=== PATIENT | male | born 1980 | race Caucasian/White ===

== ENCOUNTER 2018-06-09 19:16 | Emergency (ER) | payer MEDICAID ==
--- NOTE | 2018-06-09 19:24 | EDPHY ---
H & P Source: Patient Exam Limitations: No limitations - Family History Significant Family History: No pertinent family hx - Social History Smoking Status: Never smoked Time Seen by Provider: 06/09/18 19:23 HPI/ROS: CHIEF COMPLAINT: Left hand laceration HISTORY OF PRESENT ILLNESS: The patient is brought in by paramedics limited trauma activation with a laceration to the left hand. The patient was working with a band saw at home when he sustained a laceration to the palmar aspect of the left hand. The patient has inability to move his left index finger and reports associated numbness in his left index finger. The patient is uncertain if his tetanus is up-to-date. He denies additional complaints of trauma. REVIEW OF SYSTEMS: A comprehensive 10 point review of systems is otherwise negative aside from elements mentioned in the history of present illness. (Solo Shah) - Medical/Surgical History PMH: Past medical history: Noncontributory (Solo Shah) - Physical Exam Exam: General Appearance: Alert, no distress Head: Atraumatic Neck: Nontender, trachea midline Abdomen: Abdomen is soft and nontender, pelvis stable Skin: 5 cm laceration noted over the palm of the left hand at the interface of zone 2/3. Back: No midline T/L/S pain Extremities: Left palmar laceration noted with complete tendon lacerations noted of the flexor tendons involving the left index finger Neuro: Loss of sensation noted along the radial and ulnar aspect of the left index finger. (Solo Shah) Constitutional: Initial Vital Signs Temperature (C) 36.6 C 06/09/18 19:30 Heart Rate 108 H 06/09/18 19:30 Respiratory Rate 18 06/09/18 19:30 Blood Pressure 151/92 H 06/09/18 19:30 O2 Sat (%) 95 06/09/18 19:30 O2 Delivery Mode Room Air Allergies/Adverse Reactions: No Known Allergies Allergy (Unverified 06/09/18 19:33) Home Medications: Medication Instructions Recorded Cephalexin [Keflex (*)] 500 mg PO TID #21 cap 06/09/18 Hydrocodone/APAP 5/325 [Willington 1 - 2 each PO Q6 PRN #20 tab 06/09/18 5/325] Medical Decision Making Procedures: Procedure: Laceration repair. I was requested by Dr. Shah to perform wound closure I explained the indications, risks and benefits for both laceration repair and anesthetic administration. Verbal consent was obtained from the patient. The laceration on the left hand was anesthetized using 0.5% bupivicaine without epinephrine. After anesthetic administered the patient was observed for a period of time and had no apparent adverse effects. The wound was cleaned, prepped, draped in normal sterile fashion and explored to its base. No foreign body seen, no foreign bodies palpated. There were deep structures involved. Tendon injury was identified. Skin margins reapproximated with with 6 simple interrupted 5 O Prolene sutures. The wound repair was complex. The procedure was performed by myself. Patient has been informed that scarring will occur, although efforts have been made to minimize this. (Marek Trejo) ED Course/Re-evaluation: The patient presents to the ED with a zone II/III palmar laceration palmar laceration involving the left hand. The patient the has lacerations of the left index finger flexor tendons and also has a sensory nerve laceration involving the same digit. Consultation was made with Dr. Lr from Hand surgery and injuries were reviewed. Dr. Lr has requested closure in the emergency department and splinting. He will see the patient in the office tomorrow to discuss surgical repair of his flexor tendon and nerve injuries. The patient will be placed in a volar wrist splint. The patient is started on Keflex. Patient is given a prescription for Willington. The patient's laceration was repaired by the physician financial administrative assistant Jerry Trejo under my supervision. (Solo Shah) Differential Diagnosis: Differential diagnosis considered includes tendon injury (Solo Shah) - Data Points Medications Given: Discontinued Medications Cephalexin HCl (Keflex) 500 mg PO EDNOW ONE PRN Reason: Protocol Stop: 06/09/18 19:49 Last Admin: 06/09/18 20:11 Dose: 500 mg Diphtheria/Tetanus/Acell Pertussis (Boostrix) 0.5 ml IM .ONCE ONE Stop: 06/09/18 19:49 Last Admin: 06/09/18 20:12 Dose: 0.5 ml Departure - Departure Disposition: Home, Routine, Self-Care Clinical Impression: Laceration of left hand involving tendon Qualifiers: Encounter type: initial encounter Qualified Code(s): S61.412A - Laceration without foreign body of left hand, initial encounter Laceration of digital nerve of hand Qualifiers: Encounter type: initial encounter Qualified Code(s): S64.40XA - Injury of digital nerve of unspecified finger, initial encounter Condition: Good Instructions: Laceration (ED) Additional Instructions: 1. Take antibiotics as directed for next week. 2. Willington as needed for pain. 3. Please contact Dr. Lr tomorrow to schedule a follow-up visit for your hand injury. You will require for surgery to repair your nerve and tendon. 4. Please return to the ED for markedly increasing pain, redness, fever or swelling. 5. Please leave the splint on your left hand until seen in follow-up by Dr. Lr tomorrow or the next day. Referrals: Akash Lr MD [Medical Doctor] - As per Instructions Prescriptions: Cephalexin [Keflex (*)] 500 mg PO TID #21 cap Hydrocodone/APAP 5/325 [Willington 5/325] 1 - 2 each PO Q6 PRN #20 tab PRN Reason: for pain
[2018-06-09] MEDS ORDERED: CEPHALEXIN 500 MG CAP PO ONE (19:48)
[2018-06-09] MEDS ORDERED: TDAP ADULT 0.5 ML INJ (BOOSTRIX) IM ONE (19:48)
[2018-06-09] MEDS ORDERED: HYDROCOD/APAP 5/325 PREPACK#6 BTL TAKEHOME ONE ×2 (21:17→21:25)
[2018-06-09 21:38] VITALS: BP 106/79
== END 2018-06-09 21:38 | disposition home or self-care (01) ==
LOC: EDUNIT#
PROC: 0HQGXZZ Repair Left Hand Skin, External Approach (ICD-10-PCS; principal; 2018-06-09)
DX: S61.412A Laceration without foreign body of left hand, initial encounter (principal); S64.40XA Injury of digital nerve of unspecified finger, initial encounter; W31.2XXA Contact with powered woodworking and forming machines, initial encounter; Y92.008 Other place in unspecified non-institutional (private) residence as the place of occurrence of the external cause; Z23 Encounter for immunization

== ENCOUNTER 2018-06-19 12:01 | Day surgery (SDC) | payer MEDICAID ==
[2018-06-19] MEDS ORDERED: ceFAZolin 2 GM/DEXTROSE 100 ML IV ONE (12:21)
[2018-06-19] MEDS ORDERED: LR 1,000 ML IV ONE (12:22)
[2018-06-19] MEDS ORDERED: fentaNYL 100 MCG/2 ML INJ IVP ONE (13:00)
[2018-06-19] MEDS ORDERED: BACITRACIN 50,000 UNITS/10 ML SYR IRR ONE (13:08)
[2018-06-19] MEDS ORDERED: BUPIVACAINE 0.5% 30 ML SDV ONE (13:08)
--- NOTE | 2018-06-19 13:28 | PDHPUP ---
History & Physical Update H&P update statement: This history and physical update is based on an assessment of the patient which was completed after admission or registration (within 24 hours), but prior to the surgery/procedure. H&P update: H&P reviewed & patient examined, no change in patient's condition since H&P completed
[2018-06-19] MEDS ORDERED: MIDAZOLAM 2 MG/2 ML VIAL IVP ONE (13:41)
--- NOTE | 2018-06-19 13:42 | PDANEPAE ---
ANE Past Medical History - Cardiovascular History Hx Hypertension: No Hx Arrhythmias: No Hx Chest Pain: No Hx Coronary Artery / Peripheral Vascular Disease: No Hx CHF / Valvular Disease: No Hx Palpitations: No - Pulmonary History Hx COPD: No Hx Asthma/Reactive Airway Disease: No Hx Recent Upper Respiratory Infection: No Hx Oxygen in Use at Home: No Hx Sleep Apnea: No Sleep Apnea Screening Result - Last Documented: Negative - Neurologic History Hx Cerebrovascular Accident: No Hx Seizures: No Hx Dementia: No - Endocrine History Hx Diabetes: No Hypothyroid: No Hyperthyroid: No Obesity: no - Renal History Hx Renal Disorders: No - Liver History Hx Hepatic Disorders: No - Neurological & Psychiatric Hx Hx Neurological and Psychiatric Disorders: No - Cancer History Hx Cancer: No - Congenital Disorder History Hx Congenital Disorders: No - GI History GERD: no Hx Gastrointestinal Disorders: No Gastrointestinal History Comment: LACTOSE INTOLERANCE - Other Health History Other Health History: NEG - Chronic Pain History Chronic Pain: No - Surgical History Prior Surgeries: NONE ANE Review of Systems Review of Systems: - Exercise capacity Exercise capacity: >=4 METS METS (RN): 5 METS ANE Patient History - Allergies Allergies/Adverse Reactions: No Known Allergies Allergy (Unverified 06/09/18 19:33) - Home Medications Home Medications: Ibuprofen 06/17/18 [Last Taken 06/18/18 19:00] - NPO status NPO Since - Liquids (Date): 06/19/18 NPO Since - Liquids (Time): 11:30 NPO Since - Solids (Date): 06/19/18 NPO Since - Solids (Time): 02:00 - Anes Hx Hx Anesthesia Complications (with details): no prior h/o anesthesia - Smoking Hx Smoking Status: Never smoked - Alcohol Use Alcohol Use: Occasionally - Family Anes Hx Family Anes Hx: neg - N/A ANE Labs/Vital Signs - Vital Signs Blood Pressure: 132/89 Heart Rate: 66 Respiratory Rate: 16 O2 Sat (%): 97 Height: 170.18 cm Weight: 77.111 kg ANE Physical Exam - Airway Neck exam: FROM Mallampati Score: Class 2 Mouth exam: normal dental/mouth exam - Pulmonary Pulmonary: no respiratory distress, no rales or rhonchi, clear to auscultation - Cardiovascular Cardiovascular: regular rate and rhythym, no murmur, rub, or gallop - ASA Status ASA Status: I ANE Anesthesia Plan Anesthesia Plan: general endotracheal anesthesia Total IV Anesthesia: No
[2018-06-19] MEDS ORDERED: fentaNYL 100 MCG/2 ML INJ ONE ×2 (14:08→19:43)
[2018-06-19] MEDS ORDERED: DEXAMETHASONE 4 MG/ML VIAL ONE (14:09)
[2018-06-19] MEDS ORDERED: ROCURONIUM 50 MG/5 ML VIAL ONE (14:09)
[2018-06-19] MEDS ORDERED: ONDANSETRON 4 MG/2 ML VIAL ONE (14:09)
[2018-06-19] MEDS ORDERED: PROPOFOL 200 MG/20 ML VIAL ONE (14:09)
[2018-06-19] MEDS ORDERED: LIDOCAINE 2% 5 ML SDV ONE (14:11)
[2018-06-19] MEDS ORDERED: NALOXONE HCL 0.4 MG/ML INJ IVP PRN (14:31)
[2018-06-19] MEDS ORDERED: ONDANSETRON 4 MG/2 ML VIAL IVP PRN (14:31)
[2018-06-19] MEDS ORDERED: PROMETHAZINE HCL 25 MG/ML INJ IVP PRN (14:31)
[2018-06-19] MEDS ORDERED: oxyCODONE IR 5 MG TAB PO PRN (14:31)
[2018-06-19] MEDS ORDERED: LR 500 ML IV PRN (14:31)
[2018-06-19] MEDS ORDERED: ACETAMINOPHEN 500 MG TAB PO PRN (14:31)
[2018-06-19] MEDS ORDERED: PHENYLEPHRINE HCL 100 MCG/ML SYR IVP PRN (14:31)
[2018-06-19] MEDS ORDERED: PROPOFOL/EMULSION 500 MG/50 ML BOTTLE IV ONE ×2 (15:49→17:51)
[2018-06-19] MEDS ORDERED: REMIFENTANIL HCL 1 MG VIAL ONE ×2 (15:49→17:51)
[2018-06-19] MEDS ORDERED: ceFAZolin 1 GM VIAL ONE (18:27)
[2018-06-19] MEDS ORDERED: KETOROLAC 30 MG/1 ML SDV ONE (18:49)
--- NOTE | 2018-06-19 19:22 | POSTANESTH ---
Post Anesthetic Evaluation Cardiovascular Status: Normal, Stable Respiratory Status: Normal, Stable Level of Consciousness/Mental Status: Can Participate in Eval Pain Control: Adequate, Prn Tx Ordered Nausea/Vomiting Control: Adequate, Prn Tx Ordered Complications Possibly Related to Anesthesia: None Noted
[2018-06-19] MEDS ORDERED: HYDROCODONE/APAP 5/325 TAB ONE ×2 (19:39→20:51)
[2018-06-19] MEDS: HYDROCODONE/APAP 5/325 TAB PO PRN ×2 (19:42→20:52)
[2018-06-19] MEDS: fentaNYL 100 MCG/2 ML INJ IVP PRN ×2 (19:44→20:50)
[2018-06-19 21:35] VITALS: BP 121/78
--- NOTE | 2018-06-20 14:24 | GOP ---
DATE OF OPERATION: 06/19/2018 SURGEON: Karthik Monroy MD ANESTHESIA: General. PREOPERATIVE DIAGNOSIS: 1. Left long finger flexor digitorum profundus and flexor digitorum superficialis lacerations in zone 3. 2. Left index finger radial digital nerve laceration. 3. Left hand common digital nerve laceration to the 2nd webspace. 4. Left hand laceration of common digital nerve to 3rd webspace. POSTOPERATIVE DIAGNOSIS: 1. Left long finger flexor digitorum profundus and flexor digitorum superficialis lacerations in zone 3. 2. Left index finger radial digital nerve laceration. 3. Left index finger ulnar digital nerve laceration at the common digital nerve to the 2nd webspace bifurcation in the palm. 4. Left long finger radial digital nerve laceration at the common digital nerve to the 2nd webspace bifurcation in the palm. PROCEDURE PERFORMED: 1. Left index finger flexor digitorum superficialis repair in zone 3. 2. Left index finger flexor digitorum profundus repair in zone 3. 3. Left index finger radial digital nerve connector-assisted repair in the palm. 4. Left index finger ulnar digital nerve repair to the common digital nerve, connector assisted, in the palm. 5. Left long finger radial digital nerve repair to the common digital nerve connector-assisted repair in the palm. FINDINGS: ESTIMATED BLOOD LOSS: 15 cc. INDICATIONS: The patient is a 38-year-old male who sustained this injury last week while working home with a band saw. The saw kicked some wood and then struck his palm. He was seen in the emergency department, and injury to tendons and nerves was identified. His wound was irrigated and he was given antibiotics. He was seen the following day in our clinic by our PA. My partner was on-call and care was transferred to me. I saw and examined and evaluated the patient in clinic as well. By exam, he had laceration of the flexor tendons to the index finger in zone 3 and also loss of 2-point in the index finger, long finger, and the radial aspect of the ring finger which indicated a likely laceration of the radial digital nerve to the index finger in the palm, and also possible laceration of the common digital nerves in the 2nd and 3rd web spaces in the palm. I discussed with them that saw injury to nerves have a guarded prognosis as these have often a large zone of injury. Oftentimes, waiting some time prior to the repair assists in better defining the zone of injury to the nerves to then allow for repair of healthy nerve to healthy nerve. When I examined the patient in the preoperative holding area, he appeared to have recovered sensation to the 3rd web space, and I felt that this nerve was likely unharmed. I stated that I would explore it. I discussed with him risks and benefits. Risks include pain, bleeding, infection, damage to surrounding structures, late tendon rupture, stiffness, weakness, incomplete return of sensation, need for further operations, wound-healing complications. He understood these risks and wished to proceed. Of note, the patient presented to the ER in [place] the day prior as he was concerned about increasing pain and possibility that there was infection. I spoke to the ER physician myself. There did not appear to be any signs of infection. He was afebrile and had normal white count. There was no purulence from the wound. There was no redness from the wound. And after speaking to the ER physician, I felt it was safe to proceed. DESCRIPTION OF PROCEDURE: The patient was seen the in preoperative holding area. He was given opportunity to ask some questions. All his questions were answered. Consent was signed. Surgical site was marked. He was transferred to the operative suite. Care was taken to pad all bony prominences on the gurney. Time-out was called including surgical and anesthesia team, confirming surgical site and procedure to be performed. 2 g of Ancef was given prior to incision. The left upper extremity was prepped and draped in the usual sterile fashion. An Esmarch was used to exsanguinate the left upper extremity. The tourniquet was inflated to 350 mmHg. I first began by examining the wound. There did not appear to be any purulence. There was some maceration of the skin. There was no drainage, there was no erythema or any other signs of infection. I extended the traumatic laceration, which was about 4 cm transverse , across the palm in line with the proximal palmar crease. I extended this laceration distally into the index finger MP flexion crease, stopping short of that, then proximally into the carpal tunnel as this was necessary. After cultures of the wound, I then began with an exploration to identify injured structures. Identified a complete laceration of the radial digital nerve to the index finger. This was at the level of the palm. A complete laceration of the FDS and FDP to the index finger. This was in the level of the palm in zone 3 about a centimeter or two proximal to the A1 brigitte. The stumps to the nerves were in the carpal tunnel. Identified a complete laceration of the common digital nerve to the 2nd web space. This laceration was right at the bifurcation and, thus, he had a complete laceration through the proper ulnar and digital nerve to the index finger and the radial and digital nerve to the long finger. However, at the proximal one only the common digital nerve stump was visible. This was a difficult injury to repair as there was no discernible bifurcation for either nerve. There was a zone of injury several millimeters to either end and both nerves appeared frayed. The common digital nerve to the 3rd web space was intact. Upon further exploration, he appeared to have lacerated to the volar plate to the index finger MP joint, and there appeared to be a corticotomy in the metaphysis of the 2nd metacarpal. Bone was structurally intact; however, it appeared to have scraped the end of the saw. I then proceeded to do an aggressive irrigation and debridement. I first debrided any contamination. The ER appeared to have done a good job of irrigating the wound as there was not much gross contamination left, only a few specks which I cleaned out in their entirety. I used sharp scissors to debride the edges of the skin from the traumatic wound to get clean, nice, healthy bleeding edges. I trimmed back the tendon then slightly to get healthy tendon that was clean. The corticotomy was carefully debrided with a curette. At this time, I then irrigated copiously with several liters of sterile saline, first with bacitracin then without. After a copious irrigation, the wound appeared nice and clean, and I first began with using a 3-[address] 2 sutures to the volar plate of the index finger MP joint. This also covered up the corticotomy. I then turned my attention to the repair of the flexor tendons. Again, the proximal stumps were inside the carpal tunnel. The carpal tunnel was very carefully opened to visualize all this, going through our transverse carpal ligament in a standard fashion, protecting the median nerve at all times. The FDP was tethered by its lumbrical. The laceration was essentially right at the level of the lumbrical. I had to peel away part of the lumbrical to visualize the tendon. I then placed a nylon suture into the tendon to be able to shuttle it through underneath the palmar arch, which was protected at all times. After it was shuttled, I used a hypodermic needle to hold it in place, and then I performed a 6-strand repair by using a 4-strand cruciate backed up with a [id number] using 4-0 FiberWire. I then did the same with the FDS, which was also shuttled through underneath the arch on the carpal tunnel, and repaired this in the same fashion. This tendon appeared slightly more frayed by the saw. I then turned my attention to the repair of the nerves, focusing on the laceration of the common digital nerve to the 2nd web space. I did repair both tendon ends. This was all done utilizing an operating microscope. I used a new sharp blade to excise the frayed nerve ends out to the zone of injury until I visualized healthy fascicles. I did this on both ends. At the proximal line of the common digital nerve, I then very carefully had to separate the fascicles to be able to identify the two main fascicular bundles to the index finger and long finger. I identified the orientation to the appropriate digits, and then I began the repair of first the ulnar digital nerve to the index finger to its corresponding fascicles using a 9 -0 nylon epineural stitch. The plan here was to back this up with a connector- assisted repair. I placed 2 epineural stitches with 9-0 nylon, bringing them together nicely without tension. I then did the same for the radial digital nerves to the long finger. Then, I used a 3 x 15 connector, cut this in two- thirds, left the other third for the radial digital nerve to the index finger. I then wrapped around the repair, and I then secured the wrap with an 8-0 nylon suture. During this time, the tourniquet had to be let down due to tourniquet time, and the repair was slightly prolonged as we had to wait for reperfusion for a half hour. The tourniquet was then let back up to allow repair of the radial digital nerve to the index finger after allowing the appropriate reperfusion time. The area of the nerve proximal and distal ends were prepared in the same fashion with a sharp knife. By visualizing bleeding fascicles, I then brought it together with 9-0 nylon epineural stitches. Then, I wrapped it with the remainder of the wrap, secured the wrap together with 8-0 nylon, and then the 8-0 nylon was used to place 2 detensioning stitches in the standard fashion. I was able to visualize the repair. I had a nice repair and without tension. I then again turned my attention back to the common digital nerve. The 2nd one was placed as I now had the tourniquet up. I wanted to place 2 detensioning stitches. In doing so and trying to pass the suture through the tube, the anastomoses both pulled apart. I then had to pull the tube off and then redo the anastomosis. In a standard fashion, this was done under microscopic guidance. I began in the same fashion with the 9-0 nylon suture. I was very happy with the final repair returning both to their corresponding fascicles without tension. I then wrapped the excision connector around in the same fashion using the 8-0 nylon, and then I placed 2 detensioning stitches. One was placed in the radial digital nerve to the long finger, and then the other was placed through the common digital nerve. This detensioned the repair nicely and secured it, then the tourniquet was let down. I irrigated copiously with sterile saline. I checked the perfusion of all digits. All digits were well perfused. The arch was pulsating nicely. I then closed the incisions with 4-0 nylon suture. Sterile bulky dressing was applied. A dorsal block splint was applied. He tolerated the procedure well and was taken to the PACU in stable condition. POSTOPERATIVE CONDITION: Stable. POSTOPERATIVE PLAN: We will start the patient on early active flexor tendon protocol beginning next week, and we will follow him for return of nerve function. I did re-dose antibiotics at the 4-hour marya, and I prescribed the patient 5 days of Keflex as this was a contaminated injury. However, I felt very happy with the thoroughness of the I and D in this case. /[id number]/MODL MTDD
== END 2018-06-19 22:00 | disposition home or self-care (01) ==
LOC: FSGY 12:01
PROVIDERS: ATTEND Orthopaedic Surgery Hand Surgery
DX: S64.02XA Injury of ulnar nerve at wrist and hand level of left arm, initial encounter (principal); S64.22XA Injury of radial nerve at wrist and hand level of left arm, initial encounter; S66.121A Laceration of flexor muscle, fascia and tendon of left index finger at wrist and hand level, initial encounter; S56.122A Laceration of flexor muscle, fascia and tendon of left index finger at forearm level, initial encounter; S63.431A Traumatic rupture of volar plate of left index finger at metacarpophalangeal and interphalangeal joint, initial encounter; S61.311D Laceration without foreign body of left index finger with damage to nail, subsequent encounter; W31.2XXD Contact with powered woodworking and forming machines, subsequent encounter; Y92.019 Unspecified place in single-family (private) house as the place of occurrence of the external cause; M79.642 Pain in left hand; M79.645 Pain in left finger(s)
CPT/HCPCS: C1763; J0690; J1100; J1885; J2250; J2405; J2704; J3010

== ENCOUNTER 2018-07-04 00:07 | Emergency (ER) | payer MEDICAID ==
--- NOTE | 2018-07-04 00:58 | EDPHY ---
H & P Stated Complaint: FEVER, CHILLS SINCE 7P/CONCERNED R/T HAND SX Time Seen by Provider: 07/04/18 00:31 HPI/ROS: HPI The patient presents with subjective fevers, chills, general malaise since this afternoon associated with left index finger edema and redness. He is 14 days postoperative from hand operation performed by Dr. Monroy after a saw injury caused flexor tendon injuries and nerve injuries to his hand. He notices since this afternoon that he has difficulty with full flexion of his finger. He does not have any sensation in his index finger. He notes that it is more red than usual and the redness tracks to just proximal to his MCP. He has not had a documented fever. He has not had any drainage from the wound. REVIEW OF SYSTEMS 10 systems were reviewed and negative with the exception of the elements mentioned in the history of present illness. PMHx: Hand injury as above Soc Hx: Here with his PHYSICAL General Appearance: Alert, no distress Eyes: Pupils equal and round no pallor or injection ENT, Mouth: Mucous membranes moist Respiratory: Breathing comfortably Neurological: A&O, moves all extremities Skin: Warm and dry, no rashes Musculoskeletal: Left hand- index finger is held in flexion, is edematous and slightly erythematous which extends to the base of the digit, he he has no sensation of the digit though it is slightly warm, with palm are surgical incision with Steri-Strips with no surrounding erythema, warmth, edema Extremities: symmetrical, full range of motion Psychiatric: Patient is oriented X 3, there is no agitation Source: Patient Exam Limitations: No limitations - Personal History Current Tetanus Diphtheria and Acellular Pertussis (TDAP): Yes - Medical/Surgical History Hx Asthma: No Hx Chronic Respiratory Disease: No Hx Diabetes: No Hx Cardiac Disease: No Hx Renal Disease: No Hx Cirrhosis: No Hx Alcoholism: No Hx HIV/AIDS: No Hx Splenectomy or Spleen Trauma: No Other PMH: L HAND SX 05/2018 - Social History Smoking Status: Never smoked Constitutional: Initial Vital Signs Temperature (C) 36.7 C 07/04/18 00:19 Heart Rate 95 07/04/18 00:19 Respiratory Rate 16 07/04/18 00:19 Blood Pressure 114/87 H 07/04/18 00:19 O2 Sat (%) 95 07/04/18 00:19 O2 Delivery Mode Room Air Allergies/Adverse Reactions: No Known Allergies Allergy (Unverified 06/09/18 19:33) Home Medications: Medication Instructions Recorded Ibuprofen 06/17/18 Cephalexin [Keflex (*)] 500 mg PO Q6H #28 cap 07/04/18 Medical Decision Making Differential Diagnosis: 38-year-old male who is about 2 weeks postop from left hand surgery for tendon injuries presents with subjective fevers and chills with generalized malaise for the last 1 day. He also notes that his left index finger is more edematous and red than usual. Here, I do appreciate mild erythema and edema. The finger is not warm and not diffusely edematous. He has limited range of motion and holds it in flexion ever since his injury. I suspect he could have a mild cellulitis, flexor tenosynovitis is also on the differential though I feel this is less likely. I did consult with the on-call hand surgeon Dr. Lr and we discussed the patient's presentation. We agreed, that to be safe, we will start the patient on Keflex though FTS is quite unlikely at this time. We discussed return precautions. The patient is happy with this plan and will be discharged with instructions to follow up with Dr. Monroy in the next few days. - Data Points Medications Given: Discontinued Medications Cephalexin (Keflex 500 Mg Prepack#4) 1 btl TAKEHOME EDNOW ONE PRN Reason: Protocol Stop: 07/04/18 01:21 Last Admin: 07/04/18 01:24 Dose: 1 btl Cephalexin HCl (Keflex) 500 mg PO EDNOW ONE PRN Reason: Protocol Stop: 07/04/18 01:21 Last Admin: 07/04/18 01:24 Dose: 500 mg Departure - Departure Disposition: Home, Routine, Self-Care Clinical Impression: Finger erythema Condition: Good Instructions: Cellulitis (ED) Additional Instructions: You may have an early or mild infection of your finger. Because of this, I recommend you take the antibiotics. Please follow-up with Dr. Monroy on Friday. I recommend you elevate your arm, avoid your physical therapy exercises, use ice. Referrals: Karthik Monroy MD [Medical Doctor] - As per Instructions Prescriptions: Cephalexin [Keflex (*)] 500 mg PO Q6H #28 cap
[2018-07-04] MEDS ORDERED: CEPHALEXIN 500MG PREPACK#4 BTL TAKEHOME ONE (01:20)
[2018-07-04] MEDS ORDERED: CEPHALEXIN 500 MG CAP PO ONE (01:20)
[2018-07-04 01:27] VITALS: BP 136/97
== END 2018-07-04 01:46 | disposition home or self-care (01) ==
DX: L53.9 Erythematous condition, unspecified (principal); R50.9 Fever, unspecified; R53.81 Other malaise